=== PATIENT | male | born 1955 | race Native Hawaiian/Other Pacific Islander ===

== ENCOUNTER 2017-05-28 14:15 | Outpatient (CLI) | payer OTHER | END 2017-05-28 22:19 | disposition home or self-care (01) | LOC: RAD 14:15 | DX: J44.1 Chronic obstructive pulmonary disease with (acute) exacerbation (principal) ==

== ENCOUNTER 2020-07-16 13:05 | Outpatient (CLI) | payer OTHER | END 2020-07-16 21:39 | disposition home or self-care (01) | LOC: RAD 13:05 | PROVIDERS: ATTEND Registered Nurse | DX: R06.2 Wheezing (principal) ==